=== PATIENT | male | born 1985 | race Two or more races ===

== ENCOUNTER 2019-07-06 23:46 | Emergency (ER) | payer OTHER ==
[~2019-07-06] VITALS: Ht 167.6 cm; Wt 81.6 kg
[~2019-07-06 23:46] MED LIST: AUGMENTIN 875-1 EAC1 ORAL
--- NOTE | 2019-07-07 00:08 | NUR ---
ED Nurse Note: Patient walked in to ED from home d/t right thumb abscess, pt reports it feels swollen and hot x 1 day. Patient aao x 4 and ambulatory. Pain 8/10. No acute distress noted. Addendum: 07/07/19 at 0013 by IOROPEL ED Nurse Note: Patient walked in to ED from home d/t right thumb abscess, pt reports it feels swollen and hot x 1 day. Patient aao x 4 and ambulatory. Pain 8/10 with ADLs, 5/10 at rest. No acute distress noted.
[2019-07-07 00:09] VITALS: BP 135/82
--- NOTE | 2019-07-07 00:25 | Emergency Room Report ---
History of Present Illness General Chief Complaint: Skin Rash/Abscess Source: Patient Present Illness HPI Is a 34-year-old male with no past medical history. He presents with complaint of an abscess to his right thumb. Onset today. He noticed a small pimple in that area. He tried to pop it. He said he got pus out. And then later on the days are getting red and more swollen. Some tenderness with palpation. Similar symptom in the past. No nausea no vomiting. No fever or chills. No other drainage. Pain is 7 out of 10. Allergies: Coded Allergies: No Known Allergies (Unverified , 05/02/19) Patient History Past Medical History: see triage record, old chart reviewed Past Surgical History: none Pertinent Family History: none Social History: Reports: smoking Immunizations: other Reviewed Nursing Documentation: PMH: Agreed; PSxH: Agreed Nursing Documentation-PMH Past Medical History: No Stated History Review of Systems Eye: Denies: eye pain, blurred vision ENT: Denies: ear pain, nose congestion, throat swelling Respiratory: Denies: cough, shortness of breath Cardiovascular: Denies: chest pain, palpitations Gastrointestinal: Denies: abdominal pain, diarrhea, nausea, vomiting Musculoskeletal: Denies: back pain, joint pain Skin: Denies: rash Neurological: Denies: headache, numbness Endocrine: Denies: increased thirst, increased urine Hematologic/Lymphatic: Denies: easy bruising All Other Systems: negative except mentioned in HPI Physical Exam Vital Signs Date Time Temp Pulse Resp B/P (MAP) Pulse Ox O2 Delivery O2 Flow Rate FiO2 07/06/19 23:54 97.7 102 16 132/81 (98) 99 Room Air Vitals normal Sp02 EP Interpretation: reviewed, normal General Appearance: well appearing, no apparent distress, alert Head: normocephalic, atraumatic Eyes: bilateral eye PERRL, bilateral eye EOMI ENT: hearing grossly normal, normal pharynx Neck: full range of motion, supple, no meningismus Respiratory: chest non-tender, lungs clear, normal breath sounds Cardiovascular #1: regular rate, rhythm, no murmur Gastrointestinal: normal bowel sounds, non tender, no mass, no organomegaly, no bruit, non-distended Musculoskeletal: back normal, normal range of motion, gait/station normal, other - Right thumb: On the dorsal aspect near the MCP joint there is a small ulcerated area with surrounding erythema. No crepitance. There is mild edema with erythema. No fluctuant Psychiatric: mood/affect normal Medical Decision Making Diagnostic Impression: Primary Impression: Cellulitis of hand, right ER Course Patient with cellulitis of his right hand over the metacarpal bone area of the thumb. No evidence of necrotizing fasciitis or deep infection. No abscess to be I&D. Dose of antibiotics given here. Last Vital Signs Date Time Temp Pulse Resp B/P (MAP) Pulse Ox O2 Delivery O2 Flow Rate FiO2 07/07/19 00:09 97.7 85 18 135/82 99 Room Air Status: improved Disposition: HOME, SELF-CARE Condition: Stable Scripts Mupirocin* (MUPIROCIN*) 22 Gm Oint...g. 1 APPLIC TOPIC THREE TIMES A DAY, #22 GM Prov: Mark Rivera MD 07/07/19 Trimethoprim/Sulfamethoxazole 160/800* (BACTRIM DS TABLET*) 1 Each Tablet 1 TAB ORAL Q12H, #14 TAB 0 Refills Prov: Mark Rivera MD 07/07/19 Referrals: CRUZ THOMASON,REFERRING (PCP) Additional Instructions: Keep wound clean. Clean first with hydroperoxide and apply antibiotic ointment. Keep it covered. Follow-up with your doctor in 7 days for recheck. Return if worse. Mark Rivera MD Jul 07, 2019 00:25
[2019-07-07] MEDS ORDERED: MUPIROCIN22 GM TOPIC (00:26)
[2019-07-07] MEDS ORDERED: BACTRIM DS TAB1 EAC1 ORAL (00:26)
[2019-07-07] MEDS ORDERED: Bactrim-DS 1 tab ORAL ONE (00:30)
[2019-07-07] MEDS ORDERED: Neosporin Oint Ud Pkt TOPIC ONE (00:30)
[2019-07-07 00:34] VITALS: BP 133/89
--- NOTE | 2019-07-07 00:34 | NUR ---
ER DISCHARGE NOTE: Patient is cleared to be discharged per ERMD, pt is aox4, on room air, with stable vital signs. pt was given dc and prescription instructions, pt was able to verbalize understanding, pt id band removed. pt is able to ambulate with steady gait. pt took all belongings. pt stable upon discharge.
== END 2019-07-07 00:34 | disposition home or self-care (01) ==
LOC: EMR 23:59
DX: L03.113 Cellulitis of right upper limb (principal); F17.200 Nicotine dependence, unspecified, uncomplicated
CPT/HCPCS: 99282